=== PATIENT | male | born 1965 | race Caucasian/White ===

== ENCOUNTER 2020-12-08 17:40 | Emergency (ER) | payer OTHER ==
--- NOTE | 2020-12-08 19:19 | XRAY Report ---
PROCEDURE: Ribs w/PA Chest RT INDICATIONS: fall, R rib pain TECHNIQUE: 3 views of the right ribs were acquired, along with a single view chest. COMPARISON: None FINDINGS: Surgical changes and devices: None. Bones and chest wall: The right fourth through eighth ribs have minimally displaced fractures. Lungs and pleura: No pleural effusions or pneumothorax. Lungs appear clear. Mediastinum: Mediastinal contours appear normal. Heart size is normal. IMPRESSION: Right fourth through eighth rib minimally displaced fractures. Reviewed by: Jayme Jenkins on 12/08/2020 7:18 PM PDT Approved by: Jayme Jenkins on 12/08/2020 7:18 PM PDT Station ID: [id number]
[2020-12-08] MEDS ORDERED: oxyCODONE 5 MG TABLET PO STA (19:28)
[2020-12-08 19:43] VITALS: BP 163/98
--- NOTE | 2020-12-08 19:50 | ED Physician Documentation ---
History of Present Illness - Stated complaint Stated Complaint: R SIDE PX - Chief complaint Chief Complaint: Trauma Ch/Bk - History obtained from History obtained from: Patient - History of Present Illness Timing: How many days ago Pain level max: 6 Pain level now: 4 - Additonal information Additional information: Patient is a 55-year-old male, was paragliding 3 days ago when he fell and landed on the right ribs. Has had increasing pain since that time. Worse with movement, better with rest. No head, neck, back pain Review of Systems Constitutional: denies: Fever, Chills Respiratory: denies: Dyspnea, Cough, Hemoptysis, Wheezing GI: denies: Vomiting Musculoskeletal: denies: Neck pain, Back pain Neurologic: denies: Headache, Head injury PD PAST MEDICAL HISTORY - Past Medical History Past Medical History: No - Past Surgical History Past Surgical History: Yes General: Cholecystectomy - Present Medications Home Medications: Ambulatory Orders Medication Instructions Recorded Confirmed Lidocaine Patch 5% [Lidoderm Patch] 1 patch TOP DAILY PRN #10 patch 12/08/20 Meloxicam [Mobic] 1 tablet PO DAILY PRN 12/08/20 12/08/20 Oxycodone HCl/Acetaminophen 1 - 2 each PO Q6H PRN #20 tablet 12/08/20 [Percocet 5-325 mg Tablet] - Allergies Allergies/Adverse Reactions: Allergies Allergy/AdvReac Type Severity Reaction Status Date / Time No Known Drug Allergies Allergy Verified 12/08/20 17:52 - Social History Does the pt smoke?: No Smoking Status: Never smoker Does the pt drink ETOH?: No Does the pt have substance abuse?: No - Immunizations Immunizations are current?: Yes PD ED PE NORMAL - Vitals Vital signs reviewed: Yes - General General: Alert and oriented X 3, No acute distress - HEENT HEENT: Moist mucous membranes - Neck Neck: Supple, no meningeal sign, No bony TTP - Cardiac Cardiac: RRR, Strong equal pulses - Respiratory Respiratory: No respiratory distress, Clear bilaterally, Other (Tenderness To p alpation over the right posterior lateral ribs. No crepitus. No ecchymosis. Tenderness is over the fourth through 10th ribs.) - Back Back: No spinal TTP - Derm Derm: Warm and dry - Extremities Extremities: Normal ROM s pain - Neuro Neuro: Alert and oriented X 3 Results - Vitals Vitals: Vital Signs - 24 hr 12/08/20 12/08/20 17:52 19:42 Temperature 36.6 C Heart Rate 68 69 Respiratory 16 16 Rate Blood Pressure 158/96 H 163/98 H O2 Saturation 96 95 Oxygen O2 Source Room air - Rads (name of study) Right ribs with chest x-ray Radiology: Final report received, EMP read contemporaneously, See rad report (: Right fourth through eighth rib minimally displaced fractures. ) PD MEDICAL DECISION MAKING - ED course Complexity details: reviewed results, re-evaluated patient, considered differential, d/w patient ED course: Patient with fourth through eighth right rib fractures, minimally displaced. This occurred several days ago. We will prescribe pain medication for home. Patient is well-appearing, nontoxic. Afebrile. No hypoxia or respiratory distress. Patient counseled regarding signs and symptoms for which I believe and urgent re-evaluation would be necessary. Patient with good understanding of and agreement to plan and is comfortable going home at this time This document was made in part using voice recognition software. While efforts are made to proofread this document, sound alike and grammatical errors may occur. No hemo or pneumothorax Departure - Departure Disposition: 01 Home, Self Care Clinical Impression: Ribs, multiple fractures Qualifiers: Encounter type: initial encounter Fracture type: closed Laterality: right Qualified Code(s): S22.41XA - Multiple fractures of ribs, right side, initial encounter for closed fracture Condition: Good Instructions: ED Fx Rib Follow-Up: your,doctor in 1 week for recheck [Other] Prescriptions: Lidocaine Patch 5% [Lidoderm Patch] 1 patch TOP DAILY PRN #10 patch PRN Reason: pain Oxycodone HCl/Acetaminophen [Percocet 5-325 mg Tablet] 1 - 2 each PO Q6H PRN #20 tablet PRN Reason: pain Comments: You do have 4 rib fractures on your x-ray. Use the pain medication as needed for pain. Follow-up with your doctor for further care. Return if you worsen. I am prescribing a short course of narcotic pain medication for you. These are potentially dangerous and addictive medications that should be used carefully. These medications may constipate you. Take an [id number] stool softener (docusate) twice daily with plenty of water while taking these medications. If you go 24 hours without a bowel movement, take [id number] miralax, per package instructions. Do not drink or drive while taking these medications. If you received narcotic or sedating medications while in the emergency department, do not drive for 24 hours. Store this medication in a safe, secure place and out of reach of children. It is a violation of federal law to give or sell this medication to another person or to use in a manner other than prescribed. The ED will not refill narcotic prescriptions, including prescriptions lost or stolen. To dispose of unwanted medications: 1. [facility] at [address] in [place] has a medication drop box. They accept prescription medications (in pill form) Tuesday through Tuesday 9:00 a.m. to 5:00 p.m. 2. The [facility] accepts prescription medications (in pill form only) for disposal year round. Call for more information. 3. Contact the [facility] for the next [facility] sponsored prescription drug collection event. , [phone], or [phone]; Discharge Date/Time: 12/08/20 19:54
== END 2020-12-08 19:54 | disposition home or self-care (01) ==
LOC: ED 17:40
DX: S22.41XA Multiple fractures of ribs, right side, initial encounter for closed fracture (principal); W19.XXXA Unspecified fall, initial encounter; Y93.35 Activity, hang gliding
CPT/HCPCS: 71101; 99283; 99284; A9270

== ENCOUNTER 2022-09-26 18:33 | Emergency (ER) | payer OTHER ==
--- NOTE | 2022-09-26 18:59 | ED Physician Documentation ---
PD HPI LOWER EXT INJURY - Stated complaint Stated Complaint: FELL, L FOOT PX - Chief complaint Chief Complaint: Ext Problem - History obtained from History obtained from: Patient - History of Present Illness PD HPI LOW EXT INJURY LOCATION: Left, Foot Where injury occurred: Home Timing - onset: How many hours ago (2) Pain level max: 5 Pain level now: 3 Improved by: Rest, Ice Worsened by: Moving, Palpating Associated symptoms: Swelling. No: Numbness, Tingling Contributing factors: No: Anticoagulated - Additional information Additional information: Patient is a 57-year-old male who presents to the emergency department with left foot pain. He states that he tripped over a loader semiconductor dies bucket about 2 hours prior to arrival. This is at home. Now has swelling and bruising to the dorsum of the left foot. Better with rest and ice. Worse with walking. He states he has been able to walk on the foot since the event. Review of Systems Neurologic: denies: Headache, Head injury PD PAST MEDICAL HISTORY - Past Medical History Past Medical History: Yes Cardiovascular: None Respiratory: Sleep apnea Neuro: Headaches Endocrine/Autoimmune: None GI: None : None HEENT: None Psych: None Musculoskeletal: Chronic back pain Derm: None - Past Surgical History Past Surgical History: Yes General: Cholecystectomy - Present Medications Home Medications: Ambulatory Orders Medication Instructions Recorded Confirmed Meloxicam [Mobic] 15 mg PO DAILY PRN 12/08/20 09/26/22 - Allergies Allergies/Adverse Reactions: Allergies Allergy/AdvReac Type Severity Reaction Status Date / Time No Known Drug Allergies Allergy Verified 09/26/22 18:43 - Social History Does the pt smoke?: No Smoking Status: Never smoker Does the pt drink ETOH?: Yes ETOH Use: Liquor Does the pt have substance abuse?: No - Immunizations Immunizations are current?: Yes PD ED PE NORMAL - Vitals Vital signs reviewed: Yes - General General: Alert and oriented X 3, No acute distress - Derm Derm: Warm and dry - Extremities Extremities: Other - Neuro Neuro: Alert and oriented X 3 - Free text exam Free text exam: Swelling and ecchymosis to the dorsum of the left foot. Mild tenderness over the dorsum of the foot as well. Full range of motion of the toes without pain. Full range of motion of the ankle without pain as well. No other tenderness over the foot other than the dorsum. Neurovascular intact. No tenderness on the plantar aspect. Results - Vitals Vitals: Vital Signs - 24 hr 09/26/22 09/26/22 18:39 20:27 Temperature 36.9 C Heart Rate 82 77 Respiratory 17 20 Rate Blood Pressure 160/96 H 154/118 H O2 Saturation 96 95 Oxygen O2 Source Room air - Rads (name of study) Left foot x-ray Relevant Findings:: Final report received, See rad report PD Medical Decision Making - ED course Complexity details: reviewed results, re-evaluated patient, considered differential, d/w patient, d/w family ED course: Patient with what appears to be a contusion of the dorsum of the left foot. No acute findings on x-ray. No fracture or dislocation. Ambulating without difficulty. Declines anything home for pain. He does request an Phil wrap, this was applied. Patient counseled regarding signs and symptoms for which I believe and urgent re-evaluation would be necessary. Patient with good under standing of and agreement to plan and is comfortable going home at this time This document was made in part using voice recognition software. While efforts are made to proofread this document, sound alike and grammatical errors may occur. Departure - Departure Disposition: Home, Self Care Clinical Impression: Contusion, foot Qualifiers: Encounter type: initial encounter Laterality: left Qualified Code(s): S90.32XA - Contusion of left foot, initial encounter Condition: Good Instructions: ED Contusion Foot Follow-Up: your,doctor as needed [Other] Comments: Please follow-up with your doctor for further care. You can use Motrin or Tylenol as needed for pain. Your x-ray does not show any acute abnormalities today. You do appear to have erosion in the first metatarsal head, possible inflammatory arthritis such as erosive osteoarthritis, this can be followed up with your doctor. Your x-ray reading as below. PROCEDURE: Foot 3 View LT INDICATIONS: Trauma TECHNIQUE: Without and with discussed with Dr. culver. views of the foot were acquired. COMPARISON: None. FINDINGS: Bones: Metatarsus adductus and hallux valgus. No fractures or dislocations. No suspicious bony lesions. Mild degenerative joint disease at the first metatarsophalangeal joint. There is bony erosion in the first metatarsal head. Soft tissues: No suspicious soft tissue calcifications or masses. Dorsal soft tissue swelling. IMPRESSION: 1. No acute osseous abnormality. 2. Dorsal soft tissue swelling. 3. Metatarsus adductus and hallux valgus. 4. Mild degenerative joint disease at the first metatarsophalangeal joint. Bony erosion in the first metatarsal head. Recommend clinical correlation for inflammatory arthritis such as erosive OA. Discharge Date/Time: 09/26/22 20:28
--- NOTE | 2022-09-26 19:57 | XRAY Report ---
PROCEDURE: Foot 3 View LT INDICATIONS: Trauma TECHNIQUE: Without and with discussed with Dr. culver. views of the foot were acquired. COMPARISON: None. FINDINGS: Bones: Metatarsus adductus and hallux valgus. No fractures or dislocations. No suspicious bony lesi ons. Mild degenerative joint disease at the first metatarsophalangeal joint. There is bony erosion i n the first metatarsal head. Soft tissues: No suspicious soft tissue calcifications or masses. Dorsal soft tissue swelling. IMPRESSION: 1. No acute osseous abnormality. 2. Dorsal soft tissue swelling. 3. Metatarsus adductus and hallux valgus. 4. Mild degenerative joint disease at the first metatarsophalangeal joint. Bony erosion in the first metatarsal head. Recommend clinical correlation for inflammatory arthritis such as erosive OA. Reviewed by: Rose Keen MD on 09/26/2022 7:55 PM PDT Approved by: Rose Keen MD on 09/26/2022 7:55 PM PDT Station ID: [id number]
[2022-09-26 20:28] VITALS: BP 154/118
== END 2022-09-26 20:28 | disposition home or self-care (01) ==
LOC: ED 18:33
DX: S90.32XA Contusion of left foot, initial encounter (principal); W01.0XXA Fall on same level from slipping, tripping and stumbling without subsequent striking against object, initial encounter; Y92.009 Unspecified place in unspecified non-institutional (private) residence as the place of occurrence of the external cause
CPT/HCPCS: 99283